=== PATIENT | female | born 1940 | race Hispanic/Latino ===

== ENCOUNTER 2019-02-27 12:14 | Outpatient (CLI) | payer MEDICARE, OTHER | END 2019-02-27 12:15 | disposition home or self-care (01) | LOC: C.MRIC 12:15 ==

== ENCOUNTER 2019-04-17 08:35 | Outpatient (CLI) | payer MEDICARE, OTHER | END 2019-04-17 08:36 | disposition home or self-care (01) | LOC: C.CTH 08:35 ==